=== PATIENT | male | born 1970 | race Caucasian/White ===

== ENCOUNTER → 2018-10-06 | Outpatient (CLI) | payer OTHER ==
--- NOTE | 2018-10-06 14:30 | RADIOLOGY IMAGING REPORT ---
FACILITY: [facility] - [place] PATIENT NAME: Chidi Alvarez : 1970 MR: [id number] V: [id number] EXAM DATE: ORDERING PHYSICIAN: ALLEY RITCHIE TECHNOLOGIST: [place] [facility] [place] Chidi Alvarez : 1970 Visit/Account:[id number] Date of Sevice: 10/06/2018 KNEE 3 VIEW LEFT Indication: Left knee pain Comparison: None available Findings: 3 views left knee were obtained. No evidence of fracture, dislocation, or acute osseous abnormality of the left knee. There is moderate to severe medial compartment narrowing. Prominent spurring tibial spines. Mild greg inal osteophytosis of the medial, lateral, patellofemoral compartments. No significant joint effusion . IMPRESSION: 1.No acute osseous abnormality of the left knee 2. Chronic/degenerative changes as above. Report Dictated By: Landen Basurto MD at 10/06/2018 2:22 PM Report E-Signed By: Landen Basurto MD at 10/06/2018 2:24 PM WSN:[id number]
--- NOTE | 2018-10-06 14:37 | RADIOLOGY IMAGING REPORT ---
FACILITY: [facility] - [place] PATIENT NAME: Chidi Alvarez : 1970 MR: [id number] V: [id number] EXAM DATE: ORDERING PHYSICIAN: ALLEY RITCHIE TECHNOLOGIST: Location: [facility] - [place] Patient: Chidi Alvarez : 1970 Visit/Account:[id number] Date of Sevice: 10/06/2018 HIP LEFT Indication: Hip pain. Comparison: None available Findings: No acute osseous abnormality. Mild degenerative changes bilateral hips with the femoral heads well-se ated within acetabula bilaterally. Small phleboliths in lower pelvis. IMPRESSION: 1. No acute osseous abnormality. 2. Degenerative changes as above. Report Dictated By: Landen Basurto MD at 10/06/2018 2:29 PM Report E-Signed By: Landen Basurto MD at 10/06/2018 2:30 PM WSN:[id number]
== END ==
LOC: RAD 12:39
PROVIDERS: ATTEND Chiropractor
DX: M25.552 Pain in left hip (principal); M25.562 Pain in left knee

== ENCOUNTER → 2018-11-17 | Outpatient (CLI) | payer OTHER ==
[~2018-11-17] MED LIST: BUPIVACAINE 0.5% INJ 30ML VIAL EPI ONE; methylPREDNIS ACE 40MG/ML VIAL INJ ONE
--- NOTE | 2018-11-17 10:07 | RADIOLOGY IMAGING REPORT ---
FACILITY: [facility] PATIENT NAME: Chidi Alvarez : 1970 MR: [id number] V: [id number] EXAM DATE: ORDERING PHYSICIAN: DEMARIO ACOSTA TECHNOLOGIST: Location: [facility] - [place] Patient: Chidi Alvarez : 1970 Visit/Account:[id number] Date of Sevice: 11/17/2018 MR PELVIS W/O CON COMPARISON: None. HISTORY: Pain for one year, no known injury, left hip pain. "Evaluate possible piriformis".. TECHNIQUE: Noncontrast multiplanar MRI of the pelvis and hips with large rmvrc-ru-vydw axial, coronal and sagittal imaging of the entire pelvis and both hips. CONTRAST: None. FINDINGS: The femoral heads are well formed and seated within well formed acetabula. There is no femoral avascu lar necrosis, fracture or significant osteoarthritis. Within the limitations of assessment on large f wtly-ze-wwor series, no discrete tear of the left acetabular labrum identified. Possible tear in the right acetabular labrum versus subchondral cyst in the anterior acetabulum right hip, series 6 image 14. This has a rounded morphology favoring a subchondral cyst. At least moderate degenerative changes in the visualized lower lumbar spine, with disc height loss, e ndplate spurring and endplate associated degenerative signal changes at L3-4 and L5-S1. There are pos terior disc contour abnormalities at L3-4 and L5-S1, probably a diffuse disc bulge at L3-4 and a left gaytan degenerative disc bulge at L5-S1. Based on the large onpjc-li-vfyj images the leftward disc bulg e at L5-S1 does appear to contact the descending S1 nerve root on the left. Pubic symphysis and sacroiliac joints are unremarkable. No marrow replacing lesions or fractures. There is no hip effusion, iliopsoas or trochanteric bursitis. There is no muscle atrophy or edema. Piriformis muscles are symmetric and unremarkable. The visualized tendinous origins and tendinous insertions of the gluteal and iliopsoas muscles, as we ll as the origins of the hamstrings, quadriceps and adductor muscle groups are intact. There is enlargement of the transition zone of the prostate with benign prostate hypertrophy. Prostat e is mildly enlarged measuring 5.2 cm transverse. IMPRESSION: 1. Normal piriformis muscles. 2. Moderate degenerative changes in the visualized lower lumbar spine with degenerative disc disease at L3-4 and L5-S1 is noted. At L5-S1 there does appear to be a leftward disc bulge contacting the de scending left S1 nerve root. 3. Otherwise no specific cause for left hip pain identified. 4. Probable degenerative subchondral cyst in the right acetabulum, less likely a small nondisplaced tear in the anterior superior labrum. Report Dictated By: Neftaly Mark at 11/17/2018 9:41 AM Report E-Signed By: Neftaly Mark at 11/17/2018 9:59 AM WSN:[id number]
--- NOTE | 2018-11-17 14:43 | RADIOLOGY IMAGING REPORT ---
FACILITY: [facility] - [place] PATIENT NAME: Chidi Alvarez : 1970 MR: [id number] V: [id number] EXAM DATE: ORDERING PHYSICIAN: DEMARIO ACOSTA TECHNOLOGIST: [place] [facility] [place] Patient: Chidi Alvarez : 1970 Visit/Account:[id number] Date of Sevice: 11/17/2018 MR arthrogram left hip Indication: Left hip pain Comparison:None available Technique: Coronal STIR and axial T1-weighted images were obtained through the whole pelvis. Coronal and sagittal T1-weighted fat saturated and axial oblique T1-weighted fat saturated as well as axial T 1-weighted fat saturated and coronal proton density fat-saturated images were obtained through the le ft hip after intra-articular administration of gadolinium. Findings: Acetabular labrum: There is an oblique irregular nondisplaced tear of the anterosuperior left acetabular labrum seen bes t on images 7 and 8 of series 5 with no para labral cyst formation identified. There is no significan t para labral cyst. Bones and Articular cartilage: Mild chondral irregularity superior left hip joint cartilage. No acute fracture-dislocation. Prominent endplate changes seen across the L3-L4 endplates and L5-S1 endplates on the coronal whole p giovana images. Myotendinous structures: Bilateral iliopsoas insertions are intact, and unremarkable. Bilateral hamstring origins are intact, and unremarkable. Minimal tendinopathy distal bilateral gluteus minimus and medius tendons. Adductor and rotator musculature is unremarkable. Soft tissues: No significant intramuscular edema of the pelvic musculature on this exam. No significant fluid within the bilateral greater trochanteric bursae. Miscellaneous: Limited survey of pelvic viscera included in the ycplb-cb-nfbi reveals no evidence of significant abn ormality. Bilateral SI joints unremarkable with no evidence of significant erosive changes or fluid within the SI joints. IMPRESSION: 1. Irregular nondisplaced oblique tear of the anterosuperior left acetabular labrum as described abov e. Report Dictated By: Landen Basurto MD at 11/17/2018 2:31 PM Report E-Signed By: Landen Basurto MD at 11/17/2018 2:34 PM WSN:[id number]
--- NOTE | 2018-11-17 15:13 | RADIOLOGY IMAGING REPORT ---
[place] [facility] [place]: Chidi Al[place] : 1970 MR: [id number] V: [id number] EXAM DATE: ORDERING PHYSICIAN: DEMARIO ACOSTA TECHNOLOGIST: Location: [facility] Patient: Chidi Alvarez : 1970 Visit/Account:[id number] Date of Sevice: 11/17/2018 Exam type: Left hip arthrogram; left hip injection for pain History: Left hip pain Comparison: Left hip series September 28, 2018. Findings: Informed consent was obtained. Patient's left hip was prepped and draped in usual sterile fashion. Local anesthesia was accomplished with 1% lidocaine. Under fluoroscopic guidance a 22-gauge spinal needle was advanced percutaneously into the anterior as pect of the left hip joint. 12 mL of a dilute gadolinium suspension was then injected into the left hip joint under fluoroscopic guidance. 80 mg of Depo-Medrol and 1 mL of 0.5% Marcaine was then injec shirin into the hip joint. The procedure was accomplished without apparent complication. The patient luz starr went to for further imaging IMPRESSION: 1. Successful fluoroscopically guided left hip arthrogram Successful fluoroscopically guided left hip injection for pain as detailed above Report Dictated By: Melissa Figueroa MD at 11/17/2018 2:38 PM Report E-Signed By: Melissa Figueroa MD at 11/17/2018 3:04 PM WSN:[email or web address]
== END ==
LOC: MRI 00:45
PROVIDERS: ATTEND Orthopaedic Surgery Adult Reconstructive Orthopaedic Surgery
DX: S73.192A Other sprain of left hip, initial encounter (principal)
CPT/HCPCS: 27369; 72195; 73722; A9577; J1030; J3490

== ENCOUNTER → 2018-11-17 | Outpatient (CLI) | payer OTHER | LOC: LAB 08:22 | PROVIDERS: ATTEND Physician Assistant | DX: Z20.1 Contact with and (suspected) exposure to tuberculosis (principal) | CPT/HCPCS: 36415; 86480 ==

== ENCOUNTER → 2018-11-24 | Outpatient (CLI) | payer OTHER ==
[~2018-11-24] MED LIST changes: +ATOR10TA65 PO; -BUPIVACAINE 0.5% INJ 30ML VIAL EPI ONE; +LEVO75TA73 PO; -methylPREDNIS ACE 40MG/ML VIAL INJ ONE
== END ==
LOC: LAB 09:48
PROVIDERS: ATTEND Urology
DX: R97.20 Elevated prostate specific antigen [PSA] (principal)
CPT/HCPCS: 36415; 84153; 84154

== ENCOUNTER → 2018-11-24 | Outpatient (CLI) | payer OTHER | LOC: LAB 09:28 | PROVIDERS: ATTEND Urology | DX: R31.9 Hematuria, unspecified (principal); R82.79 Other abnormal findings on microbiological examination of urine | CPT/HCPCS: 81001; 87088 ==